=== PATIENT | female | born 1980 | race Caucasian/White ===

== ENCOUNTER → 2017-11-18 | Outpatient (CLI) | payer OTHER | LOC: STAR 12:49 | PROVIDERS: ATTEND Obstetrics & Gynecology Female Pelvic Medicine and Reconstructive Surgery | DX: Z02.9 Encounter for administrative examinations, unspecified (principal) ==

== ENCOUNTER 2017-11-25 11:35 | Day surgery (SDC) | payer OTHER ==
[2017-11-18 13:27] VITALS: BP 128/87
[~2017-11-25] VITALS: Ht 170.2 cm; Wt 95.5 kg
[~2017-11-25 11:35] MED LIST: BUPIVACAINE/PF 0.25% ONE; EPINEPHRINE 1 MG/ML, 1ML ONE; NEOMY/POLYMYXIN B GU IRR. 1 ML IRRIG ONE
[2017-11-25] MEDS ORDERED: LACTATED RINGERS 1,000 ML IV SCH (12:02)
[2017-11-25 12:19] LABS: HCG UR SG 1.013 (1.003-1.030)
[2017-11-25] MEDS ORDERED: FENTANYL PF 100 MCG/2ML ONE ×2 (13:56→15:54)
[2017-11-25] MEDS ORDERED: MIDAZOLAM 1 MG/ML, 2ML ONE ×2 (13:56→13:57)
[2017-11-25] MEDS ORDERED: DEXAMETHASONE 4 MG/ML, 1ML ONE (14:03)
[2017-11-25] MEDS ORDERED: METOCLOPRAMIDE 5 MG/ML, 2ML ONE (14:03)
[2017-11-25] MEDS ORDERED: ONDANSETRON 2MG/ML, 2ML ONE (14:03)
[2017-11-25] MEDS ORDERED: LIDOCAINE-MPF 2% ,5ML ONE (14:03)
[2017-11-25] MEDS ORDERED: PROPOFOL 10 MG/ML, 20ML ONE (14:03)
[2017-11-25] MEDS ORDERED: SUCCINYLCHOLINE 20 MG/ML, 10ML ONE (14:03)
[2017-11-25] MEDS ORDERED: CEFAZOLIN 1,000 MG ONE ×2 (14:04)
[2017-11-25] MEDS ORDERED: LIDOCAINE GEL 2%, 5ML ONE (14:08)
[2017-11-25] MEDS ORDERED: OXYcodone 5 MG/5 ML ORAL.SOL UDC PO PRN (14:30)
[2017-11-25] MEDS ORDERED: ONDANSETRON 2MG/ML, 2ML IVPush PRN (14:30)
[2017-11-25] MEDS ORDERED: MIDAZOLAM 1 MG/ML, 2ML IV PRN (14:30)
[2017-11-25] MEDS ORDERED: MEPERIDINE/PF 25MG/0.5ML IVPush PRN (14:30)
[2017-11-25] MEDS ORDERED: FENTANYL PF 100 MCG/2ML IV PRN (14:30)
[2017-11-25] MEDS ORDERED: HYDROmorphone 1 MG/ML, 1ML IV PRN (14:30)
[2017-11-25] MEDS ORDERED: LABETALOL 5MG/ML, 20ML IV PRN (14:30)
[2017-11-25] MEDS ORDERED: OXYcodone 5 MG/5 ML ORAL.SOL UDC ONE (15:54)
[2017-11-25] MEDS ORDERED: MEPERIDINE/PF 25MG/0.5ML ONE (16:12)
[2017-11-25] MEDS ORDERED: OXYcodone/APAP 5/325MG TABLET PO PRN (17:30)
[2017-11-25] MEDS ORDERED: HYDROmorphone 2 MG/ML, 1ML IVPush PRN (17:30)
[2017-11-25] MEDS ORDERED: KETOROLAC 30 MG/1 ML IVPush PRN (17:30)
[2017-11-25] MEDS ORDERED: IBUPROFEN 600 MG TABLET PO PRN (17:30)
[2017-11-25] MEDS ORDERED: KETOROLAC 30 MG/1 ML ONE (17:39)
[2017-11-25] MEDS ORDERED: HYDROmorphone 2 MG/ML, 1ML ONE (18:08)
[2017-11-25] MEDS ORDERED: IBUPROFEN 600 MG TABLET PO SCH (21:00)
== END 2017-11-25 19:05 | disposition home or self-care (01) ==
LOC: OUT 11:35
PROVIDERS: ATTEND Obstetrics & Gynecology Female Pelvic Medicine and Reconstructive Surgery
DX: N92.1 Excessive and frequent menstruation with irregular cycle (principal); N81.89 Other female genital prolapse; N39.3 Stress incontinence (female) (male)
CPT/HCPCS: 57265; 57282; 57288; 58552; 81025; 88307; C1771; J0171; J0330; J0690; J1100; J1170; J1885; J2250; J2405; J2704; J2765; J3010; J3490; J7120